=== PATIENT | female | born 1945 | race Caucasian/White ===

== ENCOUNTER 2017-03-31 16:39 | Emergency (ER) | payer MEDICARE ==
--- NOTE | 2017-03-31 20:06 | EDM.PDOC ---
ED HPI GENERAL MEDICAL PROBLEM - General Chief Complaint: Fever Stated Complaint: COUGH/FEVER Time Seen by Provider: 03/31/17 19:50 Source of Information: Reports: Patient History Limitations: Reports: No Limitations - History of Present Illness INITIAL COMMENTS - FREE TEXT/NARRATIVE: Patient presents to the ER tonight with complaints of cough for 24 hours with occasional green/yellow mucus. She also reports low grade fever. She denies SOB, chest pain, difficulty breathing. Treatments FINISH SANDER: Reports: Other (see below) (OTC cough medicine) chest pain Pain Score (Numeric/FACES): 6 - Related Data Allergies Allergy/AdvReac Type Severity Reaction Status Date / Time No Known Allergies Allergy Verified 03/31/17 19:10 Home Meds: Home Meds Aspirin [[place] Aspirin] 81 mg PO BEDTIME 03/31/17 [History] Fluticasone Propionate [Flonase] 2 spray NASBOTH DAILY 03/31/17 [History] Mirabegron [Myrbetriq] 25 mg PO DAILY 03/31/17 [History] Multivitamin [Multivitamins] 1 each PO DAILY 03/31/17 [History] Pantoprazole [ProTONIX] 40 mg PO DAILY 03/31/17 [History] Pregabalin [Lyrica] 225 mg PO BID 03/31/17 [History] Simvastatin [Zocor] 20 mg PO BEDTIME 03/31/17 [History] Timolol Maleate [Timoptic 0.5% Ophth Soln] 1 drop EYEBOTH DAILY 03/31/17 [ History] Trimethoprim [Trimethoprim] 100 mg PO Q72H 03/31/17 [History] Venlafaxine [Effexor XR 24 Hr] 37.5 mg PO DAILY 03/31/17 [History] metFORMIN HCl [Metformin HCl ER] 750 mg PO BEDTIME 03/31/17 [History] Past Medical History HEENT History: Reports: Cataract, Macular Degeneration Cardiovascular History: Reports: High Cholesterol Gastrointestinal History: Reports: Cholelithiasis, Colon Polyp, GERD Genitourinary History: Reports: UTI, Recurrent 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: Endocrine/Metabolic History: Reports: Diabetes, Type II, Obesity/BMI 30+ Hematologic History: Reports: Blood Transfusion(s) - Past Surgical History HEENT Surgical History: Reports: Cataract Surgery, Eye Surgery, Tonsillectomy GI Surgical History: Reports: Appendectomy, Cholecystectomy, Colon, Colonoscopy , Hernia Repair/Other, Polypectomy Neurological Surgical History: Reports: Lumbar Spine, Spinal Fusion Musculoskeletal Surgical History: Reports: Knee Replacement, Shoulder Surgery, Other (See Below) Other Musculoskeletal Surgeries/Procedures:: tibial wedge Social & Family History - Tobacco Use Smoking Status *Q: Never Smoker - Caffeine Use Caffeine Use: Reports: Coffee - Recreational Drug Use Recreational Drug Use: No ED ROS ENT - Review of Systems Review Of Systems: See Below Constitutional: Reports: Fever. Denies: Chills, Malaise, Weakness HEENT: Reports: Other (cough with mild sinus congestion) Respiratory: Reports: Cough, Sputum. Denies: Shortness of Breath, Wheezing, Pleuritic Chest Pain, Hemoptysis Cardiovascular: Denies: Chest Pain, Dyspnea on Exertion, Edema, Lightheadedness , Palpitations, PND, Syncope Endocrine: Reports: No Symptoms GI/Abdominal: Reports: No Symptoms : Reports: No Symptoms Musculoskeletal: Reports: No Symptoms Skin: Denies: Mottled, Pallor, Diaphoresis, Pruritis, Rash Neurological: Reports: No Symptoms Psychiatric: Reports: No Symptoms Hematologic/Lymphatic: Reports: No Symptoms Immunologic: Reports: No Symptoms ED EXAM, ENT - Physical Exam Exam: See Below Text/Narrative:: Esha presents today with complaints of cough for 24 hours with occasional green /yellow mucus production. General Appearance: Alert, WD/WN, No Apparent Distress Eye Exam: Bilateral Eye: EOMI, Normal Inspection, PERRL Ears: Normal External Exam, Normal Canal, Hearing Grossly Normal, Normal TMs Nose: Normal Inspection, Normal Mucousa, No Blood. No: Clear Rhinorrhea, Nasal Discharge, Nasal Tenderness Mouth/Throat: Normal Inspection, Normal Gums, Normal Lips, Normal Oropharynx, Normal Teeth. No: Pharyngeal Erythema, Throat Swelling, Tongue Swelling, Tonsillar Erythema, Tonsillar Exudates, Tonsillar Swelling Head: Atraumatic, Normocephalic Neck: Normal Inspection, Supple, Non-Tender, Full Range of Motion. No: Lymphadenopathy (R), Lymphadenopathy (L) Respiratory/Chest: No Respiratory Distress, Lungs Clear, Normal Breath Sounds, No Accessory Muscle Use, Chest Non-Tender Cardiovascular: Normal Peripheral Pulses, Regular Rate, Rhythm, No Edema, No Gallop, No Murmur Back: Normal Inspection, Full Range of Motion. No: CVA Tenderness (R), CVA Tenderness (L) Extremities: Normal Inspection, Normal Range of Motion, Non-Tender, No Pedal Edema, Normal Capillary Refill Neurological: Alert, Oriented, Normal Cognition, Normal Gait, No Motor/Sensory Deficits Psychiatric: Normal Affect, Normal Mood Skin: Warm, Dry, Intact, Normal Color, No Rash Lymphatic: No Adenopathy Course - Vital Signs Last Recorded V/S: Last Vital Signs Temp 38.1 C 03/31/17 19: Pulse 89 03/31/17 19:26 Resp 18 03/31/17 19: BP 174/92 H 03/31/17 19: Pulse Ox 96 03/31/17 19:26 - Orders/Labs/Meds Labs: Influenza screen negative. Departure - Departure Time of Disposition: 20:39 Disposition: Home, Self-Care 01 Condition: Good Clinical Impression: Viral illness, Cough - Discharge Information Instructions: Viral Illness, Adult Referrals: Kennedi Parr MD [Primary Care Provider] - Forms: ED Department Discharge Additional Instructions: You have been evaluated and treated for viral respiratory illness today. Influenza screen negative. Use robitussin AC as directed for cough. Tessalon pills as directed for cough. Take acetaminophen 1000mg up to 3 times a day for fever/pain. You can alternate acetaminophen with ibuprofen 800mg PO three times a day for fever/pain. You can also purchase over the counter mucinex to help with mucus/cough. Theraflu also works well. Saline nasal spray for sinus congestion. Follow up with your primary provider in 7 to 10 days if no improvement. Return to the emergency room for worsening, chest pain, difficulty breathing, uncontrolled fever. Keep yourself hydrated with plenty of fluids. - Assessment/Plan Assessment:: Viral illness Cough Plan: Esha has been evaluated and treated for viral respiratory illness today. Influenza screen negative. Use robitussin AC as directed for cough. Tessalon pills as directed for cough. Take acetaminophen 1000mg up to 3 times a day for fever/pain. She can alternate acetaminophen with ibuprofen 800mg PO three times a day for fever/pain. She can also purchase over the counter mucinex to help with mucus/cough. Theraflu also works well. Saline nasal spray for sinus congestion. Follow up with her primary provider in 7 to 10 days if no improvement. Return to the emergency room for worsening, chest pain, difficulty breathing, uncontrolled fever. Keep herself hydrated with plenty of fluids.
== END 2017-03-31 20:50 | disposition home or self-care (01) ==
LOC: JP.ED 16:39
DX: B34.9 Viral infection, unspecified (principal); E11.9 Type 2 diabetes mellitus without complications; E78.00 Pure hypercholesterolemia, unspecified; Z79.899 Other long term (current) drug therapy; Z79.84 Long term (current) use of oral hypoglycemic drugs
CPT/HCPCS: 87804; 99282; 99283

== ENCOUNTER 2018-04-18 18:51 | Emergency (ER) | payer MEDICARE ==
[2018-04-18] MEDS ORDERED: Diphtheria,Pertussis(Acell),Tetanus Vaccine 0.5 ML SDV IM ONE (19:52)
[2018-04-18] MEDS ORDERED: Bacitracin Oint 1 GM U/D Packet TOP ONE (19:52)
--- NOTE | 2018-04-18 19:55 | EDM.PDOC ---
ED HPI GENERAL MEDICAL PROBLEM - General Chief Complaint: Laceration Stated Complaint: CUT HAND WITH SAW Time Seen by Provider: 04/18/18 19:45 Source of Information: Reports: Patient, Family History Limitations: Reports: No Limitations - History of Present Illness INITIAL COMMENTS - FREE TEXT/NARRATIVE: 72-year-old female was using a table saw, she stumbled and her left hand hit the saw. She has a laceration on the palm and on the pulp area of the left thumb. No other injury. Onset: Today Duration: Hour(s): (Within the last hour) Location: Reports: Upper Extremity, Left Associated Symptoms: Reports: No Other Symptoms denies pain Pain Score (Numeric/FACES): 0 - Related Data Allergies Allergy/AdvReac Type Severity Reaction Status Date / Time No Known Allergies Allergy Verified 03/31/17 19:10 Home Meds: Home Meds Aspirin [[place] Aspirin] 81 mg PO BEDTIME 03/31/17 [History] Fluticasone Propionate [Flonase] 2 spray NASBOTH DAILY 03/31/17 [History] Mirabegron [Myrbetriq] 25 mg PO DAILY 03/31/17 [History] Multivitamin [Multivitamins] 1 each PO DAILY 03/31/17 [History] Pantoprazole [ProTONIX] 40 mg PO DAILY 03/31/17 [History] Pregabalin [Lyrica] 225 mg PO BID 03/31/17 [History] Simvastatin [Zocor] 20 mg PO BEDTIME 03/31/17 [History] Timolol Maleate [Timoptic 0.5% Ophth Soln] 1 drop EYEBOTH DAILY 03/31/17 [ History] Trimethoprim 100 mg PO Q72H 03/31/17 [History] Venlafaxine [Effexor XR 24 Hr] 37.5 mg PO DAILY 03/31/17 [History] metFORMIN HCl [Metformin HCl ER] 750 mg PO BEDTIME 03/31/17 [History] Past Medical History HEENT History: Reports: Cataract, Macular Degeneration Cardiovascular History: Reports: High Cholesterol Gastrointestinal History: Reports: Cholelithiasis, Colon Polyp, GERD Genitourinary History: Reports: UTI, Recurrent 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: Endocrine/Metabolic History: Reports: Diabetes, Type II, Obesity/BMI 30+ Hematologic History: Reports: Blood Transfusion(s) - Past Surgical History HEENT Surgical History: Reports: Cataract Surgery, Eye Surgery, Tonsillectomy GI Surgical History: Reports: Appendectomy, Cholecystectomy, Colon, Colonoscopy , Hernia Repair/Other, Polypectomy Neurological Surgical History: Reports: Lumbar Spine, Spinal Fusion Musculoskeletal Surgical History: Reports: Knee Replacement, Shoulder Surgery, Other (See Below) Other Musculoskeletal Surgeries/Procedures:: tibial wedge Social & Family History - Caffeine Use Caffeine Use: Reports: Coffee ED ROS GENERAL - Review of Systems Review Of Systems: See Below Constitutional: Denies: Fever, Chills Respiratory: Denies: Shortness of Breath Cardiovascular: Denies: Chest Pain GI/Abdominal: Denies: Nausea, Vomiting Neurological: Reports: No Symptoms. Denies: Paresthesia ED EXAM, SKIN/RASH Exam: See Below Exam Limited By: No Limitations General Appearance: Alert, No Apparent Distress Respiratory/Chest: No Respiratory Distress Extremities: Other (Remainder of exam is limited to the left hand. Patient has a 2.5 cm laceration on the pulp of the left thumb. She has a superficial laceration on the palm which is 2 cm long. The thumb laceration needs repair.) Course - Vital Signs Last Recorded V/S: Last Vital Signs Temp 97.3 F 04/18/18 19:51 Pulse 72 04/18/18 19:51 Resp 16 04/18/18 19:51 BP 168/80 H 04/18/18 19:51 Pulse Ox 100 04/18/18 19:51 - Orders/Labs/Meds Orders: Active Orders 24 hr Category Date Time Status Vaccines to be Administered [RC] PER UNIT ROUTINE Care 04/18/18 19:52 Active Meds: Medications Discontinued Medications Generic Name Dose Route Start Last Admin Trade Name Flower PRN Reason Stop Dose Admin Bacitracin 1 dose 04/18/18 19:52 04/18/18 20:02 Bacitracin Oint 1 Gm TOP 04/18/18 19:53 1 dose ONETIME ONE Administration Diphtheria/Tetanus/Acell Pertussis 0.5 ml 04/18/18 19:52 04/18/18 20:03 Adacel IM 04/18/18 19:53 0.5 ml .ONCE ONE Administration Lidocaine HCl 5 ml 04/18/18 19:52 04/18/18 20:03 Xylocaine-Mpf 1% INJECT 04/18/18 19:53 5 ml ONETIME ONE Administration - Re-Assessments/Exams Free Text/Narrative Re-Assessment/Exam: 04/18/18 19:55 Laceration was anesthetized with 1% lidocaine. She was also given a TDap Booster vaccination. 04/18/18 20:24 4 5-0 Ethilon sutures were used to close the laceration, topical bacitracin was applied and bandages. Sutures can be removed in one week. Departure - Departure Time of Disposition: 20:58 Disposition: Home, Self-Care 01 Condition: Good Clinical Impression: Laceration of thumb Qualifiers: Encounter type: initial encounter Damage to nail status: without damage Foreign body presence: without foreign body Laterality: left Qualified Code(s): S61.012A - Laceration without foreign body of left thumb without damage to nail , initial encounter - Discharge Information Instructions: Laceration Care, Adult Referrals: PCP,None [Primary Care Provider] - Forms: ED Department Discharge Care Plan Goals: Keep wound covered and clean while healing, increase activity as tolerated. Sutures can be removed next Sunday, in 8 days. Return sooner if concerns of infection or not healing satisfactorily. - My Orders Last 24 Hours: My Active Orders 04/18/18 19:52 Vaccines to be Administered [RC] PER UNIT ROUTINE - Assessment/Plan Last 24 Hours: My Active Orders 04/18/18 19:52 Vaccines to be Administered [RC] PER UNIT ROUTINE
== END 2018-04-18 20:57 | disposition home or self-care (01) ==
LOC: JP.ED 18:51
DX: S61.012A Laceration without foreign body of left thumb without damage to nail, initial encounter (principal); Z23 Encounter for immunization; E78.00 Pure hypercholesterolemia, unspecified; E11.9 Type 2 diabetes mellitus without complications; K21.9 Gastro-esophageal reflux disease without esophagitis; Z79.899 Other long term (current) drug therapy; Z79.84 Long term (current) use of oral hypoglycemic drugs; Z79.82 Long term (current) use of aspirin; W31.2XXA Contact with powered woodworking and forming machines, initial encounter
CPT/HCPCS: 12001; 90471; 90715; 99282; J2001

== ENCOUNTER 2018-06-11 07:23 | Day surgery (SDC) | payer MEDICARE ==
[2018-06-11] MEDS ORDERED: Sodium Chloride 0.9% 1,000 ML IV SCH (07:45)
[2018-06-11] MEDS ORDERED: Propofol 200 MG/20 ML SDV ONE (08:13)
[2018-06-11] MEDS ORDERED: fentaNYL 100 MCG/2 ML SDV ONE (08:13)
--- NOTE | 2018-06-11 15:15 | OR ---
DATE OF PROCEDURE: 06/11/2018 PROCEDURES: 1. EGD. 2. Taylor with pH monitor placement. COMPLICATIONS: None. 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 PREOPERATIVE DIAGNOSIS: Epigastric pain. POSTOPERATIVE DIAGNOSIS: Epigastric pain. RISKS: Risks, benefits, alternatives, and limitations including, but not limited to infection, bleeding, and perforation were explained to the patient, who wished to proceed. The patient understands these risks, among others, and has consented to surgery. DESCRIPTION OF PROCEDURE: The patient was placed in left lateral decubitus position. The EGD scope was introduced and advanced atraumatically to the second part of the duodenum. No evidence of duodenitis or ulceration. On retroflex, no significant hiatal hernia. No gastritis. No evidence of ulceration. The GE junction was measured at 42 cm. The Taylor device was placed 6 cm proximal to this. The remainder of the esophagus was normal. As far as the GE junction, there was very mild inflammation. No abnormal Stahl's tongues or any areas of concern. The scope was then removed. The device was introduced. Suction was applied per protocol. The device was deployed and the carrier was removed. The scope was reintroduced. Good placement was noted. No abnormalities. The procedure was terminated. The patient tolerated the procedure well. Isael Vu MD /[id number]
== END 2018-06-11 10:15 | disposition home or self-care (01) ==
LOC: JP.SDS 07:23
PROVIDERS: ATTEND Surgery
DX: K21.9 Gastro-esophageal reflux disease without esophagitis (principal); G47.33 Obstructive sleep apnea (adult) (pediatric); E66.9 Obesity, unspecified; Z68.35 Body mass index [BMI] 35.0-35.9, adult; Z86.39 Personal history of other endocrine, nutritional and metabolic disease; Z99.89 Dependence on other enabling machines and devices
CPT/HCPCS: J2704; J3010; J7030

== ENCOUNTER 2019-12-13 18:38 | Emergency (ER) | payer MEDICARE ==
--- NOTE | 2019-12-13 20:13 | EDM.PDOC ---
ED HPI GENERAL MEDICAL PROBLEM - General Chief Complaint: General Stated Complaint: BLOCKAGE- CONSTIPATION Time Seen by Provider: 12/13/19 18:59 Source of Information: Reports: Patient, RN Notes Reviewed History Limitations: Reports: No Limitations - History of Present Illness INITIAL COMMENTS - FREE TEXT/NARRATIVE: 74-year-old female presents emergency department a complaint of abdominal pain, she states she has had problems with bowel movements had a small bowel movement this morning but she has been constipated has have increased abdominal pain over the last week or so no nausea vomiting no fevers. - Related Data Allergies Allergy/AdvReac Type Severity Reaction Status Date / Time No Known Allergies Allergy Verified 06/11/18 08:04 Home Meds: Home Meds Aspirin [[place] Aspirin] 81 mg PO BEDTIME 03/31/17 [History] Fluticasone Propionate [Flonase] 2 spray NASBOTH DAILY 03/31/17 [History] Multivitamin [Multivitamins] 1 each PO DAILY 03/31/17 [History] Pantoprazole [ProTONIX] 40 mg PO DAILY 03/31/17 [History] Pregabalin [Lyrica] 225 mg PO BID 03/31/17 [History] Simvastatin [Zocor] 20 mg PO BEDTIME 03/31/17 [History] Venlafaxine [Effexor XR 24 Hr] 37.5 mg PO DAILY 03/31/17 [History] metFORMIN HCl [Metformin HCl ER] 750 mg PO BEDTIME 03/31/17 [History] timoloL maleate [Timoptic 0.5% Ophth Soln] 1 drop EYEBOTH DAILY 03/31/17 [History] Clotrimazole [Clotrimazole 1%] 1 applic TOP ASDIRECTED 06/07/18 [History] Glucosam/Chond-Msm1/C/Ruben/Bor [Prgwhhi-Qwaac-YNY Complex Cplt] 1 tab PO DAILY 06/07/18 [History] Oxybutynin Chloride [Ditropan Xl] 5 mg PO QPM 06/07/18 [History] Past Medical History HEENT History: Reports: Cataract, Macular Degeneration Cardiovascular History: Reports: High Cholesterol Respiratory History: Reports: Sleep Apnea Gastrointestinal History: Reports: Cholelithiasis, Colon Polyp, GERD Genitourinary History: Reports: UTI, Recurrent 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: Endocrine/Metabolic History: Reports: Diabetes, Type II, Obesity/BMI 30+ Hematologic History: Reports: Anemia, Blood Transfusion(s) - Infectious Disease History Infectious Disease History: Reports: Chicken Pox, Measles, Mumps - Past Surgical History HEENT Surgical History: Reports: Cataract Surgery, Eye Surgery, Tonsillectomy GI Surgical History: Reports: Appendectomy, Cholecystectomy, Colon, Colonoscopy, Hernia Repair/Other, Polypectomy Neurological Surgical History: Reports: Lumbar Spine, Spinal Fusion Musculoskeletal Surgical History: Reports: Knee Replacement, Shoulder Surgery, Other (See Below) Other Musculoskeletal Surgeries/Procedures:: tibial wedge Social & Family History - Tobacco Use Tobacco Use Status *Q: Never Tobacco User - Caffeine Use Caffeine Use: Reports: Coffee - Recreational Drug Use Recreational Drug Use: No ED ROS GENERAL - Review of Systems Review Of Systems: See Below Constitutional: Reports: No Symptoms Respiratory: Reports: No Symptoms Cardiovascular: Reports: No Symptoms GI/Abdominal: Reports: Abdominal Pain, Constipation. Denies: Flatus, Nausea, Vomiting ED EXAM, GENERAL - Physical Exam Exam: See Below Exam Limited By: No Limitations General Appearance: Alert, WD/WN, No Apparent Distress Respiratory/Chest: No Respiratory Distress GI/Abdominal: Soft, Non-Tender, Abnormal Bowel Sounds (Decreased). No: Guarding, Rigid, Rebound Course - Vital Signs Last Recorded V/S: Last Vital Signs Temp 98 F 12/13/19 18:59 Pulse 78 12/13/19 18:59 Resp 18 12/13/19 18:59 BP 155/95 H 12/13/19 18:59 Pulse Ox 97 12/13/19 18:59 - Orders/Labs/Meds Orders: Active Orders 24 hr Category Date Time Status Peripheral IV Care [RC] . DIRECTED Care 12/13/19 21:19 Active Abdomen 1V Upright [CR] Stat Exams 12/13/19 20:11 Taken Sodium Chloride 0.9% [Normal Saline] 82 ml Med 12/13/19 21:30 Active IV ASDIRECTED Sodium Chloride 0.9% [Saline Flush] Med 12/13/19 21:18 Active 10 ml FLUSH ASDIRECTED PRN Peripheral IV Insertion Adult [OM.PC] Urgent Oth 12/13/19 21:18 Ordered Medication Orders Sodium Chloride (Normal Saline) 82 mls @ 3.5 mls/sec IV ASDIRECTED AJCOB Last Admin: 12/13/19 22:29 Dose: 3.5 mls/sec Documented by: STEVEN Sodium Chloride (Saline Flush) 10 ml FLUSH ASDIRECTED PRN PRN Reason: Keep Vein Open Last Admin: 12/13/19 21:42 Dose: 10 ml Documented by: GERARDO Labs: Laboratory Tests 12/13/19 12/13/19 Range/Units 21:30 21:30 WBC 7.6 (4.5-11.0) K/uL RBC 4.35 (3.30-5.50) M/uL Hgb 13.6 (12.0-15.0) g/dL Hct 43.2 (36.0-48.0) % MCV 99 H (80-98) fL MCH 31 (27-31) pg MCHC 32 (32-36) % Plt Count 258 (150-400) K/uL Neut % (Auto) 47 (36-66) % Lymph % (Auto) 40 (24-44) % Emanuel % (Auto) 10 H (2-6) % Eos % (Auto) 2 (2-4) % Baso % (Auto) 1 (0-1) % Sodium 140 (140-148) mmol/L Potassium 4.0 (3.6-5.2) mmol/L Chloride 104 (100-108) mmol/L Carbon Dioxide 27 (21-32) mmol/L Anion Gap 9.4 (5.0-14.0) mmol/L BUN 12 (7-18) mg/dL Creatinine 0.9 (0.6-1.0) mg/dL Est Cr Clr Drug Dosing 42.72 mL/min Estimated GFR (MDRD) > 60 (>60) Glucose 134 H (74-106) mg/dL Calcium 9.2 (8.5-10.1) mg/dL Lipase 116 (73-393) U/L Meds: Medications Generic Name Dose Route Start Last Admin Trade Name Freq PRN Reason Stop Dose Admin Sodium Chloride 82 mls @ 3.5 mls/sec 12/13/19 21:30 12/13/19 22:29 Normal Saline IV 3.5 mls/sec ASDIRECTED JACOB Administration Sodium Chloride 10 ml 12/13/19 21:18 12/13/19 21:42 Saline Flush FLUSH 10 ml ASDIRECTED PRN Administration Keep Vein Open Discontinued Medications Generic Name Dose Route Start Last Admin Trade Name Flower PRN Reason Stop Dose Admin Sodium Chloride 1,000 mls @ 500 mls/hr 12/13/19 21:18 12/13/19 21:42 Normal Saline IV 12/13/19 23:17 500 mls/hr .BOLUS STA Administration Iopamidol 127 ml 12/13/19 21:28 12/13/19 22:29 Isovue-300 (61%) IV 12/13/19 21:29 127 ml ONETIME ONE Administration Departure - Departure Time of Disposition: 23:28 Disposition: Home, Self-Care 01 Condition: Fair Clinical Impression: Abdominal distention - Discharge Information Referrals: Dolores Infante MD [Primary Care Provider] - Forms: ED Department Discharge Additional Instructions: Try a product such as simethicone Beano or Gas-X for relief of the abdominal distention, please followup with your primary care provider in 3-5 days if not better, please call return to the emergency department with worsening of symptoms. Sepsis Event Note (ED) - Evaluation Sepsis Screening Result: No Definite Risk - Focused Exam Vital Signs: Vital Signs Temp Pulse Resp BP Pulse Ox 12/13/19 18:59 98 F 78 18 155/95 H 97 - My Orders Last 24 Hours: My Active Orders 12/13/19 20:11 Abdomen 1V Upright [CR] Stat 12/13/19 21:18 Sodium Chloride 0.9% [Saline Flush] 10 ml FLUSH ASDIRECTED PRN Peripheral IV Insertion Adult [OM.PC] Urgent 12/13/19 21:19 Peripheral IV Care [RC] . DIRECTED 12/13/19 21:30 Sodium Chloride 0.9% [Normal Saline] 82 ml IV ASDIRECTED - Assessment/Plan Last 24 Hours: My Active Orders 12/13/19 20:11 Abdomen 1V Upright [CR] Stat 12/13/19 21:18 Sodium Chloride 0.9% [Saline Flush] 10 ml FLUSH ASDIRECTED PRN Peripheral IV Insertion Adult [OM.PC] Urgent 12/13/19 21:19 Peripheral IV Care [RC] . DIRECTED 12/13/19 21:30 Sodium Chloride 0.9% [Normal Saline] 82 ml IV ASDIRECTED Plan: Assessment Acuity = acute Site and laterality = abdominal distention Etiology = probably related to gas Manifestations = none Location of injury = Home Lab values = CBC/BMP unremarkable CT scan shows a 1.3 cm mass in the uterus of uncertain etiology no bowel obstruction Plan I did review CT scan results as well as lab work provided her a copy of the CT scan as well as images follow-up primary care 3 to 5 days if not better This note was dictated using [employer] voice recognition software please call with any questions on syntax or grammar.
[2019-12-13] MEDS ORDERED: Sodium Chloride 0.9% 10 ML Syringe FLUSH PRN (21:18)
[2019-12-13] MEDS ORDERED: Sodium Chloride 0.9% 1,000 ML IV STA (21:18)
[2019-12-13] MEDS ORDERED: Iopamidol 612 MG/ML 500 ML Multipack Bottle IV ONE (21:28)
--- NOTE | 2019-12-13 23:12 | CRLCT ---
INDICATION: Abdominal pain TECHNIQUE: CT Abdomen and pelvis with i.v. contrast. Coronal and sagittal reformats were obtained. CONTRAST: 126 mL Isovue 300 COMPARISON: None FINDINGS: Lower chest: Unremarkable. Liver: Unremarkable. Spleen: Unremarkable. Pancreas: Unremarkable. Gallbladder: Unremarkable. Kidney: Unremarkable. No kidney or ureteral stones or obstruction seen. Adrenal: Unremarkable. Bowel: Small sliding type esophageal hiatal hernia (type I) is present. The appendix is normal in appearance and size. A small fat containing right lateral abdominal wall hernia is noted. Two small fat containing ventral hernias are noted in the midline abdomen. Vascular: Unremarkable. Lymph: Unremarkable. Peritoneum: Unremarkable. No pneumoperitoneum is seen. No significant ascites is noted. Pelvis: There is hypodensity seen in the central uterus measuring nearly 1.3 cm. Soft tissue: Unremarkable. Bone: Transpedicular fusion with total laminectomies are noted from L3-L5 with grade 1 anterolisthesis of L3-4 and L4-5. IMPRESSIONS: 1. There is hypodensity seen in the central uterus measuring nearly 1.3 cm. Assessment with outpatient pelvic ultrasound or MRI is recommended to exclude endometrial mass or endometrial thickening. 2. A small fat containing right lateral abdominal wall hernia is noted. Two small fat containing ventral hernias are noted in the midline abdomen. Dictated by Eh Duke MD @ 12/13/2019 11:09:41 PM Please note that all CT scans at this facility use dose modulation, iterative reconstruction, and/or weight-based dosing when appropriate to reduce radiation dose to as low as reasonably achievable. Dictated by: Eh Duke MD @ 12/13/2019 23:09:52 (Electronically Signed)
--- NOTE | 2019-12-15 10:03 | CR ---
Abdomen 1V Upright CLINICAL HISTORY: Abdominal pain FINDINGS: There is some gaseous distention of right and transverse colon with some air-fluid levels. Small intestinal configuration is nonacute. No free air is identified. IMPRESSION: Mild gaseous distention and liquid stool in the right and transverse colon. Rectosigmoid is nondistended. No focal transition point is seen.
== END 2019-12-13 23:48 | disposition home or self-care (01) ==
LOC: JP.ED 18:38
DX: R14.0 Abdominal distension (gaseous) (principal); E11.9 Type 2 diabetes mellitus without complications; K21.9 Gastro-esophageal reflux disease without esophagitis; E66.9 Obesity, unspecified; E78.00 Pure hypercholesterolemia, unspecified; Z79.84 Long term (current) use of oral hypoglycemic drugs; Z79.82 Long term (current) use of aspirin; Z79.899 Other long term (current) drug therapy; Z90.49 Acquired absence of other specified parts of digestive tract; Z68.34 Body mass index [BMI] 34.0-34.9, adult
CPT/HCPCS: 36415; 74018; 74177; 80048; 83690; 85025; 99284; J7030; Q9967

== ENCOUNTER 2022-01-15 13:40 | Emergency (ER) | payer MEDICARE ==
[2022-01-15 14:55] LABS: CORONAVIRUS COVID-19 NAA NEGATIVE (NEGATIVE)
[2022-01-15] MEDS ORDERED: Albuterol/Ipratropium 3.0-0.5 MG/3 ML Neb Soln NEB ONE (15:09)
[2022-01-15] MEDS ORDERED: Acetaminophen 325 MG Tab PO STA (15:09)
[2022-01-15] MEDS ORDERED: Codeine/guaiFENesin 10-100 MG/5 ML Syrup 5 ML Cup PO ONE ×2 (15:09→18:16)
[2022-01-15] MEDS ORDERED: Lactated Ringers 1,000 ML IV SCH (15:15)
[2022-01-15 15:48] LABS: ESTIMATED GFR 66 mL/min (>60)
[2022-01-15] MEDS ORDERED: Sodium Chloride 0.9% 50 ML IV ONE (16:28)
[2022-01-15] MEDS ORDERED: Sodium Chloride 0.9% 10 ML Syringe FLUSH ONE (16:28)
[2022-01-15] MEDS ORDERED: Iopamidol 612 MG/ML 100 ML Bottle IV ONE (16:28)
[2022-01-15] MEDS ORDERED: Levofloxacin/Dextrose 5%-Water 750 MG in Premix Bag 1 BAG IV ONE (17:22)
== END 2022-01-15 19:30 | disposition home or self-care (01) ==
LOC: JP.ED 13:40
DX: J18.9 Pneumonia, unspecified organism (principal); E78.00 Pure hypercholesterolemia, unspecified; E11.9 Type 2 diabetes mellitus without complications; E66.9 Obesity, unspecified; Z68.34 Body mass index [BMI] 34.0-34.9, adult; Z79.82 Long term (current) use of aspirin; Z79.899 Other long term (current) drug therapy; Z79.84 Long term (current) use of oral hypoglycemic drugs; Z90.49 Acquired absence of other specified parts of digestive tract; Z20.822 Contact with and (suspected) exposure to COVID-19
CPT/HCPCS: 0241U; 36415; 71046; 71260; 80053; 83605; 84145; 85025; 86140; 87040; 94640; 96365; 99285; A9270; J1956; J3490; J7120; Q9967; J7620